=== PATIENT | female | born 1995 | race Two or more races ===

== ENCOUNTER 2022-06-07 09:42 | Inpatient (IN) | payer OTHER ==
[2022-06-07 11:38] VITALS: BMI 30.4
[2022-06-07] MEDS ORDERED: MAGNESIUM HYDROX 2400MG/30ML ORAL SUSPENSION 30 ML CUP PO PRN (11:59)
[2022-06-07] MEDS ORDERED: BISMUTH SUBSALICYLATE 262 MG/15 ML BTL PO PRN (11:59)
[2022-06-07] MEDS ORDERED: ACETAMINOPHEN 325 MG TABLET (FP) PO PRN ×2 (11:59)
[2022-06-07] MEDS ORDERED: NICOTINE 10 MG CARTRIDGE (INHALER) IH PRN (11:59)
[2022-06-07] MEDS ORDERED: MAGNESIUM CITRATE 300 ML BOTTLE PO PRN (11:59)
[2022-06-07] MEDS ORDERED: DICYCLOMINE HCL 10 MG CAPSULE PO PRN (11:59)
[2022-06-07] MEDS ORDERED: ONDANSETRON *ODT* 4 MG TABLET SL PRN (11:59)
[2022-06-07] MEDS ORDERED: MAG HYDROX/AL HYDROX/SIMETH 30 ML UNIT-DOSE CUP PO PRN (11:59)
[2022-06-07] MEDS ORDERED: BENZOCAINE/MENTHOL (CHLORASEPTIC ) LOZENGE MM PRN (11:59)
[2022-06-07] MEDS ORDERED: LORazepam 1 MG TABLET PO PRN (11:59)
[2022-06-07] MEDS ORDERED: LOPERAMIDE HCL 2 MG CAPSULE PO PRN (11:59)
[2022-06-07] MEDS: PRENATAL VITAMINS W/ FOLIC ACID TABLET (FP) PO SCH (13:43)
[2022-06-07] MEDS: hydrOXYzine PAMOATE 25 MG CAPSULE (FP) PO SCH ×3 (13:43→22:59)
[2022-06-07] MEDS: CLOBETASOL EMOLLIENT 0.05% TP SCH ×2 (18:45)
[2022-06-07] MEDS: LORazepam 2 MG TABLET PO SCH ×2 (18:46→22:58)
[2022-06-07] MEDS: MELATONIN 5 MG TABLETS PO SCH (22:59)
[2022-06-07] MEDS: THIAMINE HCL 100 MG TABLET (FP) PO SCH ×2 (22:59→23:15)
[2022-06-07] MEDS: METHOCARBAMOL 500 MG TABLET PO PRN (23:17)
[2022-06-08] MEDS: hydrOXYzine PAMOATE 25 MG CAPSULE (FP) PO SCH ×5 (06:15→22:45)
[2022-06-08] MEDS: LORazepam 2 MG TABLET PO SCH (06:15)
[2022-06-08] MEDS: PRENATAL VITAMINS W/ FOLIC ACID TABLET (FP) PO SCH (11:15)
[2022-06-08] MEDS: LORazepam 1 MG TABLET PO SCH ×3 (11:17→22:46)
[2022-06-08] MEDS: NICOTINE 14 MG/24 HOURS TOPICAL PATCH TD SCH (11:19)
[2022-06-08] MEDS: IBUPROFEN 600 MG TABLET (FP) PO PRN ×2 (11:23→22:49)
[2022-06-08] MEDS: CLOBETASOL EMOLLIENT 0.05% TP SCH (12:01)
[2022-06-08 13:35] LABS: HEMATOCRIT 39.6 % (32.4-45.2); HEMOGLOBIN 12.9 GM/dL (10.7-15.3); MCH 31.7 pg (25.7-33.7); MCHC 32.5 g/dl (32.0-36.0); MEAN CELL VOLUME 97.5 fl (80-96); MEAN PLT VOLUME 8.3 fl (7.5-11.1); PLATELET COUNT 296 10^3/uL (134-434); RBC 4.06 M/mm3 (3.60-5.2); RDW 14.2 % (11.6-15.6); WHITE BLOOD COUNT 4.9 K/mm3 (4.0-10.0)
[2022-06-08 13:57] LABS: CALCIUM 9.6 mg/dL (8.5-10.1)
[2022-06-08 13:58] LABS: ALBUMIN 3.7 g/dl (3.4-5.0); BLOOD UREA NITROGEN 5.9 mg/dL (7-18)
[2022-06-08 14:02] LABS: BILIRUBIN,TOTAL 0.7 mg/dL (0.2-1)
[2022-06-08] MEDS: PETROLATUM,WHITE OINTMENT 3.5 OZ JAR TP SCH (15:30)
[2022-06-08] MEDS: METHOCARBAMOL 500 MG TABLET PO PRN (18:27)
[2022-06-08] MEDS: IBUPROFEN 400 MG TABLET (FP) PO PRN (18:28)
[2022-06-08] MEDS: MELATONIN 5 MG TABLETS PO SCH (22:45)
[2022-06-08] MEDS: THIAMINE HCL 100 MG TABLET (FP) PO SCH (22:46)
[2022-06-09] MEDS: LORazepam 1 MG TABLET PO SCH ×4 (06:53→22:18)
[2022-06-09] MEDS: hydrOXYzine PAMOATE 25 MG CAPSULE (FP) PO SCH ×5 (06:53→22:17)
[2022-06-09] MEDS: METHOCARBAMOL 500 MG TABLET PO PRN (11:00)
[2022-06-09] MEDS: PRENATAL VITAMINS W/ FOLIC ACID TABLET (FP) PO SCH (11:00)
[2022-06-09] MEDS: CLOBETASOL EMOLLIENT 0.05% TP SCH (11:03)
[2022-06-09] MEDS: PETROLATUM,WHITE OINTMENT 3.5 OZ JAR TP SCH (11:03)
[2022-06-09] MEDS: NICOTINE 14 MG/24 HOURS TOPICAL PATCH TD SCH (11:03)
[2022-06-09] MEDS: MELATONIN 5 MG TABLETS PO SCH (22:17)
[2022-06-09] MEDS: THIAMINE HCL 100 MG TABLET (FP) PO SCH (22:17)
[2022-06-10] MEDS ORDERED: LORazepam 0.5 MG TABLET PO PRN
[2022-06-10] MEDS: LORazepam 0.5 MG TABLET PO SCH ×4 (05:42→22:27)
[2022-06-10] MEDS: hydrOXYzine PAMOATE 25 MG CAPSULE (FP) PO SCH ×5 (05:42→22:26)
[2022-06-10] MEDS: IBUPROFEN 600 MG TABLET (FP) PO PRN (05:46)
[2022-06-10] MEDS: PRENATAL VITAMINS W/ FOLIC ACID TABLET (FP) PO SCH (11:05)
[2022-06-10] MEDS: PETROLATUM,WHITE OINTMENT 3.5 OZ JAR TP SCH (11:06)
[2022-06-10] MEDS: METHOCARBAMOL 500 MG TABLET PO PRN (11:07)
[2022-06-10] MEDS: CLOBETASOL EMOLLIENT 0.05% TP SCH (11:12)
[2022-06-10] MEDS: NICOTINE 14 MG/24 HOURS TOPICAL PATCH TD SCH (11:13)
[2022-06-10] MEDS: THIAMINE HCL 100 MG TABLET (FP) PO SCH (22:26)
[2022-06-10] MEDS: MELATONIN 5 MG TABLETS PO SCH (22:26)
[2022-06-11] MEDS ORDERED: LORazepam 0.5 MG TABLET PO ONE (05:00)
[2022-06-11] MEDS: IBUPROFEN 400 MG TABLET (FP) PO PRN ×2 (05:59→18:01)
[2022-06-11] MEDS: hydrOXYzine PAMOATE 25 MG CAPSULE (FP) PO SCH ×5 (05:59→22:32)
[2022-06-11] MEDS: PRENATAL VITAMINS W/ FOLIC ACID TABLET (FP) PO SCH (11:34)
[2022-06-11] MEDS: NICOTINE 14 MG/24 HOURS TOPICAL PATCH TD SCH (11:35)
[2022-06-11] MEDS: CLOBETASOL EMOLLIENT 0.05% TP SCH (11:35)
[2022-06-11] MEDS: PETROLATUM,WHITE OINTMENT 3.5 OZ JAR TP SCH (11:35)
[2022-06-11] MEDS: THIAMINE HCL 100 MG TABLET (FP) PO SCH (22:32)
[2022-06-11] MEDS: MELATONIN 5 MG TABLETS PO SCH (22:32)
[2022-06-11] MEDS: METHOCARBAMOL 500 MG TABLET PO PRN (23:26)
[2022-06-12] MEDS: hydrOXYzine PAMOATE 25 MG CAPSULE (FP) PO SCH ×2 (06:59→09:59)
[2022-06-12 08:14] VITALS: RESP 18
[2022-06-12 08:49] VITALS: BP 154/77; PULSE 95; TEMP 97.1
[2022-06-12] MEDS: NICOTINE 14 MG/24 HOURS TOPICAL PATCH TD SCH (09:59)
[2022-06-12] MEDS: PRENATAL VITAMINS W/ FOLIC ACID TABLET (FP) PO SCH (09:59)
[2022-06-12] MEDS: PETROLATUM,WHITE OINTMENT 3.5 OZ JAR TP SCH (10:00)
[2022-06-12] MEDS: CLOBETASOL EMOLLIENT 0.05% TP SCH (10:00)
== END 2022-06-12 10:34 | disposition other institution (70) | DRG 774 ==
LOC: YASAS 09:42 → Y3N 12:40
PROVIDERS: ADMIT Allergy & Immunology; ATTEND Surgery
PROC: HZ2ZZZZ Detoxification Services for Substance Abuse Treatment (ICD-10-PCS; principal; 2022-06-07)
DX: F10.230 Alcohol dependence with withdrawal, uncomplicated (principal); F14.20 Cocaine dependence, uncomplicated; F17.210 Nicotine dependence, cigarettes, uncomplicated; R74.8 Abnormal levels of other serum enzymes; Z87.59 Personal history of other complications of pregnancy, childbirth and the puerperium
CPT/HCPCS: 36415; 80053; 81025; 84702; 85027; 86780; 87811; 93005; 93010; C9803-CS; U0003; U0005